=== PATIENT | male | born 1995 | race Caucasian/White ===

== ENCOUNTER 2021-03-01 03:23 | Emergency (ER) | payer SELFPAY ==
[~2021-03-01] VITALS: Ht 152.4 cm; Wt 62.0 kg
[2021-03-01] MEDS ORDERED: ACETAMINOPHEN 500MG TABLET PO ONE (03:45)
[2021-03-01 04:50] VITALS: BP 141/90
== END 2021-03-01 05:10 | disposition home or self-care (01) ==
LOC: ER 03:23
DX: F41.9 Anxiety disorder, unspecified (principal); F12.10 Cannabis abuse, uncomplicated; Z98.890 Other specified postprocedural states
CPT/HCPCS: 99282